=== PATIENT | male | born 1950 | race Caucasian/White ===

== ENCOUNTER 2017-09-01 12:48 | Emergency (ER) | payer OTHER ==
[2017-09-01] MEDS ORDERED: HYDROmorphONE/DILAUDID 1 MG/ML INJ IVP ONE ×3 (13:41→14:40)
--- NOTE | 2017-09-01 13:48 | EDPHY ---
H & P Smoking Status: Never smoked Time Seen by Provider: 09/01/17 13:29 HPI/ROS: This patient presents with urinary retention. He explains he has a long history of but on prostatic hypertrophy and on Sunday of this week, 6 days prior to arrival starting 11:00 a.m. he had increasing difficulty passing urine and by 5:00 p.m. he wound up in the emergency department in [place] where a catheter was placed. He had no evidence of a acute prostatitis at that time-no infection. He follow up with his urologist who started him on Flomax. He has been compliant with Flomax and on Sunday-yesterday he had the Rossi catheter removed. He arrived from [place] via plane this morning at around 10 and at 10: 30 a.m. passed a small amount of yellow purine urine with some difficulty and since then has been unable to pass urine with increasing suprapubic discomfort similar to his pain on Sunday, currently 7/10 in intensity. ROS: No fevers chills or other constitutional symptoms GI: No nausea vomiting or upper belly pain. Normal bowel movements. : No gross hematuria prior to arrival. No dysuria. No flank pain Integumentary: No skin rash or pallor 7 point ROS is otherwise negative (Woody Peterson) Past Medical/Surgical History: Moderate obesity BPH (Woody Peterson) Physical Exam: General Appearance: Alert, no distress. Eyes: Pupils equal and round no pallor or injection. ENT, Mouth: Mucous membranes moist. Respiratory: There are no retractions, lungs are clear to auscultation. Cardiovascular: Regular rate and rhythm. Gastrointestinal: Normoactive, soft, positive suprapubic tenderness with apparent bladder distension. : Circumcised penis with no urethral discharge. No testicular or epididymal tenderness. Neurological: GCS 15 Skin: Warm and dry, no rashes. Musculoskeletal: Neck is supple nontender. Extremities are symmetrical, full range of motion. Psychiatric: Mood and affect are normal DIFFERENTIAL DIAGNOSIS: After history and physical exam differential diagnosis was considered for urinary retention, BPH, cystitis, prostatitis (Woody Peterson) Constitutional: Initial Vital Signs Temperature (C) 36.4 C 09/01/17 13:20 Heart Rate 79 09/01/17 13:20 Respiratory Rate 20 09/01/17 13:20 Blood Pressure 151/87 H 09/01/17 13:20 O2 Sat (%) 96 09/01/17 13:20 O2 Delivery Mode Room Air Allergies/Adverse Reactions: No Known Allergies Allergy (Unverified 09/01/17 13:23) Home Medications: Medication Instructions Recorded Cefuroxime Axetil [Cefuroxime] 500 mg PO BID #14 tablet 09/01/17 MDM/Departure - MDM Medications Given: Discontinued Medications Hydromorphone HCl (Dilaudid) 1 mg IVP EDNOW ONE Stop: 09/01/17 13:42 Last Admin: 09/01/17 13:57 Dose: 1 mg Hydromorphone HCl (Dilaudid) 1 mg IVP EDNOW ONE Stop: 09/01/17 14:15 Last Admin: 09/01/17 14:16 Dose: 1 mg Hydromorphone HCl (Dilaudid) 1 mg IVP EDNOW ONE Stop: 09/01/17 14:41 Last Admin: 09/01/17 14:44 Dose: 1 mg Ketorolac Tromethamine (Toradol) 30 mg IVP EDNOW ONE Stop: 09/01/17 14:36 Last Admin: 09/01/17 14:45 Dose: 30 mg ED Course/Re-evaluation: Our nurse Yonathan passed a q.day catheter with some resistance to inflating the balloon. He then deflated the balloon inserted the cath further and was unable to inflate the balloon but the patient still has a feeling of bladder distention and pain despite this with only a small amount of blood tinged mucus passed through the catheter. IV is placed and patient is treated with IV Dilaudid for analgesia prior to repeat catheter placement I spoke with Dr. Dumont-urologist on-call after repeat catheter placement in flush still does not relieve his feeling of bladder distention and pain. He is given a repeat dose of Dilaudid IV and source of Toradol [address] Dumont requests urine jet lidocaine with repeat catheter placement and flush. If this fails he will come in to see the patient I spoke with Dr. Faust at 3:00 p.m. regarding this patient with transfer of care at that time. (Woody Peterson) I took over care of this patient at 3:00 p.m.. This patient is here for acute urinary retention. Please see details above. There have been 3 attempts in the emergency department to relieve his retention. The most recent with an 18 [place] Rossi catheter. There is likely be blood and clot pulling in the bladder which is causing obstruction of the Rossi catheter. Dr. Peterson spoke with on-call urologist Dr. Dumont. Dr. Dumont is supposed to call back shortly to see if are 3rd attempt with an 18 [place] Rossi catheter was successful if not he will come to the emergency department and evaluate and treat this patient. 3:25 p.m., 18 [place] Rossi catheter has worked well. The patient has had 1200 cc of urine out. He feels significant relief. We spoke with Dr. Dumont of the Urology service. Patient will be discharged to home with Rossi in place. He will follow up with Dr. Dumont on Sunday. The patient's urinalysis indicates probable infection with white blood cells, leukocyte esterase and positive nitrate. I will prescribe cefuroxime, 500 mg to be taken twice daily over the next 7 days. The patient understands his follow-up. Repeat abdominal exam is soft, nontender nondistended. Rossi catheter in place. Patient's remaining emergency department course under my care has been uneventful. Return to emergency department precautions reviewed. All of his questions were answered. He was discharged in good condition. (Daniella Faust) - Depart Disposition: Home, Routine, Self-Care Clinical Impression: Urinary retention Condition: Good Instructions: Urinary Retention in Men (ED), Rossi Catheter Placement and Care (ED) Additional Instructions: Read and follow provided instructions. Follow-up with Dr. Dumont of the Urology service on Sunday. Call his office Sunday for appointment time. Dr. Dumont is aware that your seen in our emergency department and is aware of your treatment. Take antibiotic as prescribed for treatment of probable urinary tract infection starting tonight through entire course of treatment. Return to the emergency department for urinary retention, pain, bleeding, fever , vomiting or other serious concerns. Prescriptions: Cefuroxime Axetil [Cefuroxime] 500 mg PO BID #14 tablet Referrals: Mor Dumont MD [Medical Doctor] - As per Instructions
[2017-09-01 13:54] LABS: PLATELET COUNT 225 10^3/uL (150-400)
[2017-09-01 14:21] VITALS: TEMP 97.5
[2017-09-01] MEDS ORDERED: KETOROLAC 30 MG/1 ML SDV IVP ONE (14:35)
[2017-09-01] MEDS ORDERED: LIDOCAINE 2% JELLY 20 ML (UROJECT) UR ONE (14:49)
[2017-09-01 17:14] VITALS: BP 130/94; PULSE 71; RESP 16; O2SAT 93
[2017-09-02] MEDS ORDERED: NS 1,000 ML IV ONE (07:55)
== END 2017-09-01 17:00 | disposition home or self-care (01) ==
LOC: CED 12:48
PROC: 0T9B70Z Drainage of Bladder with Drainage Device, Via Natural or Artificial Opening (ICD-10-PCS; principal; 2017-09-01)
DX: R33.9 Retention of urine, unspecified (principal)
CPT/HCPCS: 51702; 96361; 96374; 96375; 99284; J1170; J1885; 80048-PO; 81003-PO; 81015-PO; 85025-PO

== ENCOUNTER 2017-09-07 05:51 | Inpatient (IN) | payer OTHER ==
--- NOTE | 2017-09-07 06:01 | EDPHY ---
H & P Stated Complaint: Urinary Retention, "not able to pee at all" Source: Patient - Personal History Current Tetanus Diphtheria and Acellular Pertussis (TDAP): Yes - Medical/Surgical History Hx Asthma: No Hx Chronic Respiratory Disease: No Hx Diabetes: No Hx Cardiac Disease: No Hx Renal Disease: No Hx Cirrhosis: No Hx Alcoholism: No Hx HIV/AIDS: No Hx Splenectomy or Spleen Trauma: No Other PMH: prostate enlarged - Social History Smoking Status: Never smoked HPI/ROS: HPI CHIEF COMPLAINT: Urinary retention unable to urinate HISTORY OF PRESENT ILLNESS: This patient is 67-year-old male, history of BPH, the taking antibiotic for recent UTI. He recently had a Rossi put catheter based at [facility] emergency room this was then removed by Dr. Dumont on Sunday or 2 days ago, he now presents to the emergency room stating that he is unable to urinate and has bladder pressure. States he last had a urination around 10:00 p.m. last night. He has had frequent urination throughout the night with minimal output. He may have an obstruction get needs in the Rossi catheter. Patient Denies any vomiting or fever. Patient reports to me that he specially would like Dr. Dumont to place the catheter. Past Medical History: History of BPH and urinary retention multiple Rossi catheters over the past few weeks. Past Surgical History: No recent surgery Social History: Denies daily use drugs or tobacco products. Family History: Noncontributory Patient's Urologist is Dr. Dumont. MARTA REVIEW OF SYSTEMS: A comprehensive 10 point review of systems is otherwise negative aside from elements mentioned in the history of present illness. Exam Constitutional appears well nontoxic, appears well nontoxic, triage nursing summary reviewed, vital signs reviewed, awake/alert. Eyes normal conjunctivae and sclera, EOMI, PERRLA. HENT normal inspection, atraumatic, moist mucus membranes, no epistaxis, neck supple/ no meningismus, no raccoon eyes. Respiratory clear to auscultation bilaterally, normal breath sounds, no respiratory distress, no wheezing. Cardiovascular rate normal, regular rhythm, no murmur, no edema, distal pulses normal. Gastrointestinal soft, mild tender palpation over this region, no rebound, no guarding, normal bowel sounds, no distension, no pulsatile mass. Genitourinary no CVA tenderness. Musculoskeletal no midline vertebral tenderness, full range of motion, no calf swelling, no tenderness of extremities, no meningismus, good pulses, neurovascularly intact. Skin pink, warm, & dry, no rash, skin atraumatic. Neurologic awake, alert and oriented x 3, AAOx3, moves all 4 extremities equally, motor intact, sensory intact, CN II-XII intact, normal cerebellar, normal vision, normal speech. Psychiatric normal mood/affect. Heme/Lymph/Immune no lymphadenopathy. Differential Diagnosis: Includes not limited to in a particular order, urinary tract infection, urinary obstruction, outflow obstruction, BPH, cystitis, urinary retention Medical Decision Making: Plan for this patient bladder scan, will consult Dr. Dumont. Re-evaluation: Patient bladder scan and only 150 cc of urine. 0635: Consulted Dr. Merino with Urology. Given the bladder scan only shows 150 cc of urine he does not feel this patient needs an emergent catheter. I explained that the patient would like Dr. Dumont to be notified. Dr. Merino will touch base with Dr. Dumont about this patient. Dr. Merino reports that Dr. Dumont may want to do a TURP on this patient, and will need to talk to Dr. Dumont before making a disposition for this patient. Dr. Merino to call us back in ER for final recommendations. Patient of Dr. Junior at 7am Shift-change. Awaiting Dr. Merino's Phone call back and further recommendation. (Alan Olea) Constitutional: Initial Vital Signs Temperature (C) 36.4 C 09/07/17 05:53 Heart Rate 79 09/07/17 05:53 Respiratory Rate 18 09/07/17 05:53 Blood Pressure 153/81 H 09/07/17 05:53 O2 Sat (%) 97 09/07/17 05:53 O2 Delivery Mode Room Air O2 (L/minute) 2 Allergies/Adverse Reactions: No Known Allergies Allergy (Verified 09/07/17 09:20) Home Medications: Medication Instructions Recorded Cefuroxime Axetil [Cefuroxime] 500 mg PO BID #14 tablet 09/01/17 Tamsulosin HCl [Flomax 0.4 MG (*)] 0.4 mg PO HS 09/07/17 Medical Decision Making Other Provider: I assumed care of this patient at 7:00 a.m.. I spoke with Dr. Merino, who spoke with Dr. Dumont. The plan is for the patient to undergo TURP today. He will remain NPO. Both the patient and his have been informed of this plan and are in agreement with it. (Alyssia Junior) - Data Points Laboratory Results: Laboratory Results 09/08/17 04:13 09/08/17 04:13 Medications Given: Discontinued Medications Acetaminophen (Tylenol) 650 mg PO Q4HRS PRN PRN Reason: Pain, Mild/Fever, Can Take PO Stop: 03/06/18 12:35 Last Admin: 09/08/17 13:42 Dose: 650 mg Lactated Ringer's (Lr) 1,000 mls @ 0 mls/hr IV ONCE ONE PRN Reason: KVO Stop: 09/07/17 09:14 Last Admin: 09/07/17 09:23 Dose: 1,000 mls Cefazolin Sodium (Cefazolin Syringe) 2 gm in 20 mls @ 200 mls/hr IVP ONCALL ONE PRN Reason: Protocol Stop: 09/07/17 10:05 Last Admin: 09/07/17 11:02 Dose: 20 mls Dextrose/Lactated Ringer's (D5w Lr) 1,000 mls @ 125 mls/hr IV CONT ANAHI Stop: 03/06/18 12:44 Last Admin: 09/07/17 21:39 Dose: 1,000 mls Lidocaine (Uroject Lidocaine 2% Jelly) Confirm Administered Dose 20 ml .ROUTE .STK-MED ONE Stop: 09/07/17 10:29 Last Admin: 09/07/17 11:27 Dose: 20 ml Midazolam HCl (Versed) 2 mg IVP ONCALL ONE Stop: 09/07/17 10:04 Last Admin: 09/07/17 10:43 Dose: 2 mg Departure - Departure Disposition: Home, Routine, Self-Care Clinical Impression: Urinary tract infection Qualifiers: Urinary tract infection type: acute cystitis Hematuria presence: with hematuria Qualified Code(s): N30.01 - Acute cystitis with hematuria BPH (benign prostatic hyperplasia) Qualifiers: Lower urinary tract symptom presence: unspecified whether lower urinary tract symptoms present Qualified Code(s): N40.0 - Benign prostatic hyperplasia without lower urinary tract symptoms Condition: Fair
[2017-09-07] MEDS ORDERED: HYDROmorphONE/DILAUDID 1 MG/ML INJ IVP PRN (07:28)
[2017-09-07] MEDS ORDERED: ONDANSETRON 4 MG/2 ML VIAL IVP PRN ×3 (07:28→12:40)
[2017-09-07] MEDS ORDERED: ONDANSETRON DISINTEGRATING 4 MG TAB PO PRN ×2 (07:28→12:36)
[2017-09-07] MEDS ORDERED: D5W 1/2 NS W/ 20 KCl/L 1,000 ML IV SCH (07:30)
--- NOTE | 2017-09-07 09:02 | CPEKG ---
Heart Rate: 63 RR Interval: 952 P-R Interval: 180 QRSD Interval: 114 QT Interval: 420 QTC Interval: 430 P [place]: 38 QRS [place]: 50 T Wave [place]: 43 EKG Severity - ABNORMAL ECG - EKG Impression: SINUS RHYTHM EKG Impression: Artifact in V2 Electronically Signed By: Alyssia Junior 07-Sep-2017 14:58:47
[2017-09-07] MEDS ORDERED: LR 1,000 ML IV ONE (09:13)
--- NOTE | 2017-09-07 09:59 | PDHPUP ---
History & Physical Update H&P update statement: This history and physical update is based on an assessment of the patient which was completed after admission or registration (within 24 hours), but prior to the surgery/procedure. H&P update: H&P reviewed & patient examined, no change in patient's condition since H&P completed
[2017-09-07] MEDS ORDERED: ceFAZolin 2 GM/SWFI 2 GM/20 ML SYR IVP ONE (10:00)
[2017-09-07] MEDS ORDERED: MIDAZOLAM 2 MG/2 ML VIAL IVP ONE (10:03)
--- NOTE | 2017-09-07 10:03 | PDANEPAE ---
ANE Past Medical History - Cardiovascular History Hx Hypertension: No Hx Arrhythmias: No Hx Chest Pain: No Hx Coronary Artery / Peripheral Vascular Disease: No Hx CHF / Valvular Disease: No Hx Palpitations: No - Pulmonary History Hx COPD: No Hx Asthma/Reactive Airway Disease: No Hx Recent Upper Respiratory Infection: No Hx Oxygen in Use at Home: No Hx Sleep Apnea: No - Neurologic History Hx Cerebrovascular Accident: No Hx Seizures: No Hx Dementia: No - Endocrine History Hx Diabetes: No Hypothyroid: No Hyperthyroid: No Obesity: no - Renal History Hx Renal Disorders: No - Liver History Hx Hepatic Disorders: No - Neurological & Psychiatric Hx Hx Neurological and Psychiatric Disorders: No - Cancer History Hx Cancer: No - Congenital Disorder History Hx Congenital Disorders: No - GI History GERD: no Hx Gastrointestinal Disorders: No - Chronic Pain History Chronic Pain: No - Surgical History Prior Surgeries: TONSILLECTOMY ANE Review of Systems Review of Systems: - Exercise capacity METS (RN): 4 METS ANE Patient History - Allergies Allergies/Adverse Reactions: No Known Allergies Allergy (Verified 09/07/17 09:20) - Home Medications Home Medications: Tamsulosin HCl [Flomax 0.4 MG (*)] 09/07/17 [Last Taken 09/06/17] - NPO status NPO Since - Liquids (Date): 09/06/17 NPO Since - Liquids (Time): 22:00 NPO Since - Solids (Date): 09/06/17 NPO Since - Solids (Time): 22:00 - Anes Hx Anes Hx: no prior problems - Smoking Hx Smoking Status: Never smoked Marijuana use: No - Alcohol Use Alcohol Use: Rarely - Family Anes Hx Family Anes Hx: none Family Hx Anesthesia Complications: NONE ANE Labs/Vital Signs - Vital Signs Blood Pressure: 119/80 Heart Rate: 67 Respiratory Rate: 16 O2 Sat (%): 97 Height: 190.5 cm Weight: 102.058 kg ANE Physical Exam - Airway Neck exam: FROM Mallampati Score: Class 2 Mouth exam: normal dental/mouth exam - Pulmonary Pulmonary: no respiratory distress, no rales or rhonchi, clear to auscultation - Cardiovascular Cardiovascular: regular rate and rhythym, no murmur, rub, or gallop - ASA Status ASA Status: II ANE Anesthesia Plan Anesthesia Plan: GA w LMA
[2017-09-07] MEDS ORDERED: LIDOCAINE 2% JELLY 20 ML (UROJECT) ONE (10:28)
[2017-09-07] MEDS ORDERED: fentaNYL 100 MCG/2 ML INJ ONE ×3 (10:31→11:22)
[2017-09-07] MEDS ORDERED: PROPOFOL 200 MG/20 ML VIAL ONE (10:31)
[2017-09-07] MEDS ORDERED: ROCURONIUM 50 MG/5 ML VIAL ONE (10:33)
[2017-09-07] MEDS ORDERED: DEXAMETHASONE 4 MG/ML VIAL ONE (10:33)
[2017-09-07] MEDS ORDERED: ONDANSETRON 4 MG/2 ML VIAL ONE (10:34)
[2017-09-07] MEDS ORDERED: LIDOCAINE 2% 5 ML SDV ONE (10:34)
[2017-09-07] MEDS ORDERED: PHENYLEPHRINE HCL 100 MCG/ML SYR ONE (10:54)
[2017-09-07] MEDS ORDERED: SUGAMMADEX SODIUM 200 MG/2 ML VIAL IVP ONE (12:09)
[2017-09-07] MEDS ORDERED: HYDROCODONE/APAP 5/325 TAB PO PRN ×2 (12:35→12:40)
[2017-09-07] MEDS ORDERED: OPIUM/BELLADONNA ALKALO SUPP PR PRN (12:35)
[2017-09-07] MEDS ORDERED: ZOLPIDEM TARTRATE 5 MG TAB PO PRN (12:36)
--- NOTE | 2017-09-07 12:37 | GHP ---
[f rep st] HISTORY AND PHYSICAL DATE OF ADMISSION: 09/07/2017 DATE OF CONSULTATION: 09/07/2017 REASON FOR CONSULTATION: H&P for urinary retention, history of Rossi catheterization. Recurring urinary retention, urethral trauma from prior attempted catheterizations HISTORY OF PRESENT ILLNESS: This is a pleasant 67-year-old male who has been seen in our office with 2 recent episodes of acute urinary retention requiring a Rossi catheter. He presented to the emergency room this morning with increasing difficulty urinating and pain in the bladder. The patient had been seen in our office this week, had an ultrasound done, which revealed 130 g prostate, a postvoid residual of around 400 when he left our office and states, as I mentioned above, increasing difficulty urinating, necessitating urgent need for management. He has had urethral trauma from prior attempts at catheterization and emergent TURP needed due to this recurring problem. PAST MEDICAL HISTORY: BPH, requiring multiple Rossi catheters. PAST SURGICAL HISTORY: No recent surgeries. SOCIAL HISTORY: Denies drugs or tobacco use. Splits his time between [place] and [place]. FAMILY HISTORY: Noncontributory. MEDICATIONS: See [employer] for review of meds. ALLERGIES: No known drug allergies. PHYSICAL EXAM: VITAL SIGNS: Blood pressure 119/80, heart rate 67, respirations 16, O2 97 on room air, temperature 36.9. GENERAL: This is a well-developed, well -nourished male, in no acute distress. HEENT: Normocephalic, atraumatic. Extraocular movements intact. NECK: Supple. No lymphadenopathy. Trachea midline. RESPIRATORY: No accessory respiratory muscle use. CARDIAC: Regular rate and rhythm. No lower extremity edema. No obvious JVD. GI: Abdomen soft, nondistended, nontender to palpation. No hepatosplenomegaly. : No CVA tenderness, discomfort with light pressure over bladder. INTEGUMENT: No obvious rashes or lesions. MUSCULOSKELETAL: Patient was examined while supine but moving upper extremities without difficulty. NEURO: Patient was alert and oriented. Affect appropriate to situation. LABS: His urine was positive for blood, 2+ leuks, negative for nitrites. ASSESSMENT: Acute urinary retention. PLAN: This patient has had multiple episodes of acute urinary retention in the past few weeks, which is escalating in its severity and timing. Discussed options with patient, including placement of Rossi catheter, teaching for intermittent Rossi catheter, or procedure to manage the situation given number of urgent situations requiring hospital visits. Recommend patient be admitted for transurethral resection of the prostate for management of this urgent and acute issue. The patient agrees with the plan. Consent reviewed and signed. We will plan on surgery today. /[id number]/MODL MTDD
--- NOTE | 2017-09-07 12:39 | POSTOPPROG ---
Post Op Note Date of Operation: 09/07/17 Surgeon: Mor Dumont Anesthesia: LMA Pre-op Diagnosis: acute recurring retention of urine Post-op Diagnosis: same Procedure: turp Inf/Abcess present in the surg proc area at time of surgery?: No EBL: not able to estimate Drains: Other (evangelista) Specimen(s): sent---dictated
[2017-09-07] MEDS ORDERED: fentaNYL 100 MCG/2 ML INJ IVP PRN (12:40)
[2017-09-07] MEDS ORDERED: NALOXONE HCL 0.4 MG/ML INJ IVP PRN (12:40)
[2017-09-07] MEDS ORDERED: LR 500 ML IV PRN (12:40)
[2017-09-07] MEDS ORDERED: PROMETHAZINE HCL 25 MG/ML INJ IVP PRN (12:40)
[2017-09-07] MEDS ORDERED: ACETAMINOPHEN 500 MG TAB PO PRN (12:40)
[2017-09-07] MEDS ORDERED: OXYCODONE/APAP 5/325 TAB PO PRN (12:40)
[2017-09-07] MEDS ORDERED: MEPERIDINE 25 MG/ML SYR IVP PRN (12:40)
--- NOTE | 2017-09-07 12:42 | POSTANESTH ---
Post Anesthetic Evaluation Cardiovascular Status: Normal, Stable Respiratory Status: Normal, Stable Level of Consciousness/Mental Status: Can Participate in Eval Pain Control: Adequate, Prn Tx Ordered Nausea/Vomiting Control: Adequate, Prn Tx Ordered Complications Possibly Related to Anesthesia: None Noted
--- NOTE | 2017-09-07 13:07 | GOP ---
[f rep st] OPERATIVE REPORT DATE OF OPERATION: 09/07/2017 SURGEON: Mor Dumont MD PREOPERATIVE DIAGNOSIS: Benign prostatic hypertrophy with recurring urinary retention. POSTOPERATIVE DIAGNOSIS: Benign prostatic hypertrophy with recurring urinary retention. PROCEDURE PERFORMED: Transurethral resection of the prostate. FINDINGS: DESCRIPTION OF PROCEDURE: After undergoing general anesthesia he was prepped and draped in normal st erile fashion in the dorsal lithotomy position and urethra is normal up to the bulb of the urethra wh ere he had traumatic catheterizations that was identified. On the bladder he had a large intravesica l lobe of the prostate, lateral lobar hypertrophy, +4 trabeculation of bladder. At that point, his T UR was begun, taking down the intravesical lobe of the prostate on the right side and then intravesic al lobe of the prostate on the left side and then at that point, the right lateral lobe and right pos terior lobe were resected. Left lateral lobe and left posterior lobe resected. The apex of the pros mckeon resected. At the end of the procedure, there was no injury or problems of the bladder. His nicolás dder was irrigated free of all chips and clots. Visualization revealed no residual chips or clots. Ureteral orifices preserved. External sphincter approximated at the midline symmetrically. A [address] catheter passed in the bladder over a Mandarin guide, and balloon inflated, mild traction plac ed, and irrigated clear. He will be admitted for postoperative care. Of interest, this patient has had somewhat of a hypervascular prostate so with each loop resection th at had arterial flow going in and I was able to cauterize that with the bipolar loop and button. The n also of interest, the gentleman had recurring bouts of urinary retention secondary to BPH and this was done urgently because of his recurring problems and difficulty in passing the catheter with ureth ral trauma from attempted catheterizations. Specimen sent to Pathology and discussed the findings wi th his . /[id number]/MODL
[2017-09-07] MEDS: D5W LR 1,000 ML IV SCH ×2 (15:30→21:39)
[2017-09-07] MEDS: ACETAMINOPHEN 325 MG TAB PO PRN (21:36)
[2017-09-08 04:33] LABS: PLATELET COUNT 245 10^3/uL (150-400)
--- NOTE | 2017-09-08 12:00 | ASMTCMCOM ---
CM Note CM Note Notes: 09/08/2017 Case Mangement Note Pt admitted for BPH with surgery today. Case management d/c needs TBD. There are no PT or OT evals ordered at this time. Anticipating independent d/c with follow up as directed. Case Management to follow. Date Signed: 09/08/2017 12:00 PM Electronically Signed By:Erinn Patterson RN
[2017-09-08] MEDS: ACETAMINOPHEN 325 MG TAB PO PRN (13:42)
--- NOTE | 2017-09-08 15:29 | SOAPPROG ---
SOAP Progress Note Assessment/Plan: Assessment: CBI is improved - recommend cont this and stop CBI at 7 PM Plan:likely home tomorrow 09/08/17 15:27 Objective: Vital Signs Temp Pulse Resp BP Pulse Ox 36.5 C 70 16 107/74 94 09/08/17 12:03 09/08/17 12:03 09/08/17 12:03 09/08/17 12:03 09/08/17 12:03 Laboratory Results 09/08/17 04:13 09/08/17 04:13 09/07/17 09/08/17 09/09/17 05:59 05:59 05:59 Intake Total 3190 500 Output Total 1960 Balance 1230 500 Physical Exam - Physical Exam EENT: PERRL/EOMI Neck: non-tender, full range of motion Respiratory: chest non-tender Abdomen: normal bowel sounds Male Genitalia: normal genitalia Rectal: normal exam Skin: normal color ICD10 Worksheet Patient Problems: Problems Problem Status Onset BPH (benign prostatic hyperplasia) Acute Urinary retention due to benign prostatic hyperplasia Acute Urinary tract infection Acute
--- NOTE | 2017-09-09 11:40 | SOAPPROG ---
SOAP Progress Note Assessment/Plan: Assessment: Rossi fell out last night, fractured balloon - concern here -pt voiding well - Plan:DC home 09/08/17 15:27 09/09/17 11:39 Objective: Vital Signs Temp Pulse Resp BP Pulse Ox 36.6 C 65 16 105/60 92 09/09/17 07:29 09/09/17 07:29 09/09/17 07:29 09/09/17 07:29 09/09/17 07:29 09/08/17 09/09/17 09/10/17 05:59 05:59 05:59 Intake Total 2115 Output Total 4400 1450 Balance -2285 -1450 ICD10 Worksheet Patient Problems: Problems Problem Status Onset BPH (benign prostatic hyperplasia) Acute Urinary retention due to benign prostatic hyperplasia Acute Urinary tract infection Acute
[2017-09-09 11:50] VITALS: BP 107/67; PULSE 75; RESP 15; TEMP 97.6; O2SAT 91
--- NOTE | 2017-09-09 16:21 | ASDISCHSUM ---
Discharge Information Plan Status:Home with No Needs Medically Cleared to Leave:09/08/2017 Discharge Date:09/09/2017 01:10 PM CM D/C Disposition:Home, Routine, Self-Care ADT D/C Disposition:Home, Routine, Self-Care Projected Discharge Date:09/09/2017 01:10 PM Transportation at D/C:Family Discharge Delay Reason: Follow-Up Date:09/09/2017 01:10 PM Discharge Slot: Final Diagnosis: Placement Information Patient Contact Information Contact Name:JINA Relationship: Address:[address] Work Phone: Carmelo:NICHELLE Alternate Phone: [facility] Code:[place] [address] Email: Financial Information Financial Class:Medicare Advantage Plans Primary Plan Desc:[facility] Primary Plan Number:[id number] Secondary Plan Desc: Secondary Plan Number: Assessment Information BC CM Progress Note CM Note CM Note Notes: 09/08/2017 Case Mangement Note Pt admitted for BPH with surgery today. Case management d/c needs TBD. There are no PT or OT evals ordered at this time. Anticipating independent d/c with follow up as directed. Case Management to follow. Date Signed: 09/08/2017 12:00 PM Electronically Signed By:Erinn Patterson RN LACE BEKAH Length of stay for Answers: Less than 1 day current admission Acuity / Level of Care Answers: Was the patient admitted to hospital via the emergency department? Yes: Comorbidities - select Answers: Any tumor (including all that apply lymphoma or leukemia) Emergency dept visits in Answers: 1 last 6 months Score: 6 Date Signed: 09/09/2017 12:16 PM Electronically Signed By:Erinn Patterson RN Intervention Information
[2017-09-09] MEDS ORDERED: TAMSULOSIN HCL 0.4 MG PO SCH (21:00)
[2017-09-09] MEDS ORDERED: TAMSULOSIN HCL 0.4 MG CAP PO SCH (21:00)
== END 2017-09-09 13:10 | disposition home or self-care (01) | DRG 714 ==
LOC: F1N 14:15 → OBSVTOIN 09-08 15:43
PROVIDERS: ADMIT Specialist; ATTEND Specialist
PROC: 0VT08ZZ Resection of Prostate, Via Natural or Artificial Opening Endoscopic (ICD-10-PCS; principal; 2017-09-07 10:15)
DX: N40.1 Benign prostatic hyperplasia with lower urinary tract symptoms (principal); R33.9 Retention of urine, unspecified
CPT/HCPCS: G0378; J0690; J1100; J2250; J2370; J2405; J2704; J3010